=== PATIENT | female | born 1975 | race Caucasian/White ===

== ENCOUNTER 2018-11-25 16:12 | Emergency (ER) | payer OTHER ==
--- NOTE | 2018-11-25 17:33 | ER Document Report ---
ED Extremity Problem, Lower - General Chief Complaint: Leg Swelling Stated Complaint: LEG PAIN Time Seen by Provider: 11/25/18 17:16 Primary Care Provider: MAXIMUS VAIL MD [ACTIVE STAFF] - Follow up in 3-5 days TRAVEL OUTSIDE OF THE [place] IN LAST 30 DAYS: No - HPI Notes: 43-year-old female presents to the ED with complaints of right lower calf pain times 2 days, noticed some ecchymosis around lower calf area, denies any trauma, bleeding disorders, clotting disorders. Patient was concerned she might have a blood clot, no history of blood clot no recent immobilization, surgery or control. Patient asked a friend who said she may have a blood clot. Has not tried any warm compresses, ibuprofen or Tylenol. Last menstrual period was 2 weeks ago. 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 Denies fevers, chills, chest pain,palpitations, shortness of breath, dyspnea, nausea, vomiting, diarrhea, abdominal pain, hematuria,blurred vision, double vision, loss of vision, speech changes, LH, dizziness, syncope, headaches, weakness, bowel or bladder dysfunction, saddle anesthesia, numbness or tingling in bilateral upper or lower extremities equally, muscle paralysis, weakness in bilateral upper or lower extremities equally or rash - Related Data Allergies/Adverse Reactions: No Known Allergies Allergy (Unverified 11/25/18 16:14) Past Medical History - General Information source: Patient - Social History Smoking Status: Never Smoker Chew tobacco use (# tins/day): No Frequency of alcohol use: Social Drug Abuse: None Family History: Reviewed & Not Pertinent Patient has suicidal ideation: No Patient has homicidal ideation: No Renal/ Medical History: Denies: Hx Peritoneal Dialysis Review of Systems - Review of Systems Constitutional: No symptoms reported EENT: No symptoms reported Cardiovascular: No symptoms reported Respiratory: No symptoms reported Gastrointestinal: No symptoms reported Genitourinary: No symptoms reported Female Genitourinary: No symptoms reported Musculoskeletal: See HPI Skin: No symptoms reported Hematologic/Lymphatic: No symptoms reported Neurological/Psychological: No symptoms reported Physical Exam - Vital signs Vitals: Temp Pulse Resp BP Pulse Ox 98.1 F 70 20 148/93 H 97 11/25/18 16:21 11/25/18 16:21 11/25/18 16:21 11/25/18 16:21 11/25/18 16:21 - Notes Notes: PHYSICAL EXAMINATION: GENERAL: Well-appearing, well-nourished and in no acute distress. HEAD: Atraumatic, normocephalic. EYES: Pupils equal round and reactive to light, extraocular movements intact, conjunctiva are normal. ENT: Nares patent, oropharynx clear without exudates. Moist mucous membranes. NECK: Normal range of motion, supple without lymphadenopathy LUNGS: Breath sounds clear to auscultation bilaterally and equal. No wheezes rales or rhonchi. HEART: Regular rate and rhythm without murmurs ABDOMEN: Soft, nontender, nondistended abdomen. No guarding, no rebound. No masses appreciated. Female : deferred Musculoskeletal: Normal range of motion, no pitting or edema. No cyanosis. right calf tenderness with palpation to calf. negative maite's sign. anterior and posterior drawer test negative.Dtr + 2 in BLE. Full motor and sensory function.scant ecchymosis to lower calf. no abrasions noted. distal pulses + 2 bilaterally and equally. Bilateral lower extremity without deformity or asymmetry. No STS or edema. No overlying erythema, warmth, discoloration. No lesions or break in the skin integrity. No evidence of compartment syndrome, lymphadenopathy, gangrene. No palpable cords or evidence of thrombophlebitis. NEUROLOGICAL: Cranial nerves grossly intact. Normal speech, normal gait. Normal sensory, motor exams PSYCH: Normal mood, normal affect. SKIN: Warm, Dry, normal turgor, no rashes or lesions noted. 22-like and then on the other half of a flight Course - Re-evaluation Re-evalutation: 11/25/18 19:12 43-year-old female presents the ED for evaluation of right lower leg calf pain times 2 days. Patient's vitals are stable afebrile no distress. Patient is not having any shortness of breath or dyspnea, no lightheadedness or headaches. Patient was concerned that she might have a blood clot due to unilateral calf pain, patient does not have any risk factors such as taking control, periods of immobilization, surgery, chemotherapy, or history of blood clots. wet read of venous u/s was negative for blood clot. I have reevaluated this patient multiple times and no significant life threatening changes, no signs of [place], sepsis or peritonitis are noted. The patient and I have discussed the diagnosis and risks, and we agree with discharging home and close follow-up. We also discussed returning to the Emergency Department immediately if new or worsening symptoms occur with the understanding that symptoms and presentations can change. At this time will discharge with return precautions and follow-up recommendations. Verbal discharge instructions given a the bedside and opportunity for questions given. We have discussed the symptoms which are most concerning (e.g., fever, worsening calf pain, pain) that necessitate immediate return. Medication warnings reviewed. All questions and concerns answered by th is provider. Patient is in agreement with this plan and has verbalized understanding of return precautions and the need for primary care follow-up in the next 24-72 hours. Patient verbalized understanding of plan of care and agree with plan of care. - Vital Signs Vital signs: Temp Pulse Resp BP Pulse Ox 98.1 F 70 20 148/93 H 97 11/25/18 16:21 11/25/18 16:21 11/25/18 16:21 11/25/18 16:21 11/25/18 16:21 - Laboratory Result Diagrams: 11/25/18 18:30 11/25/18 18:30 Laboratory results interpreted by me: 11/25/18 11/25/18 18:30 18:30 WBC 11.7 H RDW 15.6 H Calcium 10.5 H AST 55 H Discharge - Discharge Clinical Impression: Superficial thrombophlebitis Condition: Stable Disposition: HOME, SELF-CARE Additional Instructions: your ultrasound negative for dvt's and blood work is normal Return immediately for any new or worsening symptoms. Follow up with primary care provider, call tomorrow to make followup appointment. Forms: Return to Work Referrals: MAXIMUS VAIL MD [ACTIVE STAFF] - Follow up in 3-5 days
[2018-11-25 18:45] LABS: ABSOLUTE BASOPHILS # (AUTO) 0.1 10^3/uL (0.0-0.2); ABSOLUTE EOSINOPHILS # (AUTO) 0.3 10^3/uL (0.0-0.6); ABSOLUTE LYMPHOCYTES (AUTO) 2.5 10^3/uL (0.5-4.7); ABSOLUTE MONOCYTES (AUTO) 0.7 10^3/uL (0.1-1.4); ABSOLUTE NEUT (AUTO) 8.2 10^3/uL (1.7-8.2); BASOPHILS % (AUTO) 0.8 % (0-2); EOSINOPHILS % (AUTO) 2.6 % (0-6); HEMATOCRIT 39.1 % (36.0-47.0); HEMOGLOBIN 13.3 g/dL (12.0-15.5); MEAN CORPUSCULAR HEMOGLOBIN 29.9 pg (27.0-33.4); MEAN CORPUSCULAR VOLUME 88 fl (80-97); MONOCYTES % (AUTO) 5.8 % (3-13); PLATELET COUNT 425 10^3/uL (150-450); RED BLOOD COUNT 4.44 10^6/uL (3.72-5.28); RED CELL DISTRIBUTION WIDTH 15.6 % (11.5-14.0); SEGMENTED NEUTROPHILS % (AUTO) 69.8 % (42-78); TOTAL CELLS COUNTED % (AUTO) 100 %; WHITE BLOOD COUNT 11.7 10^3/uL (4.0-10.5)
[2018-11-25 18:55] LABS: INTERNATIONAL RATION (INR) 0.92; PARTIAL THROMBOPLASTIN TIME 31.9 SEC (23.5-35.8); PROTHROMBIN TIME 12.8 SEC (11.4-15.4)
[2018-11-25 18:56] LABS: ALANINE AMINOTRANSFERASE 52 U/L (9-52); ALBUMIN 4.3 g/dL (3.5-5.0); ALKALINE PHOSPHATASE 95 U/L (38-126); ANION GAP 11 (5-19); ASPARTATE AMINO TRANSFERASE 55 U/L (14-36); BILIRUBIN,DIRECT 0.3 mg/dL (0.0-0.4); BILIRUBIN,TOTAL 0.4 mg/dL (0.2-1.3); BLOOD UREA NITROGEN 16 mg/dL (7-20); CALCIUM 10.5 mg/dL (8.4-10.2); CARBON DIOXIDE 26 mmol/L (22-30); CHLORIDE 101 mmol/L (98-107); GLUCOSE 94 mg/dL (75-110); POTASSIUM 4.3 mmol/L (3.6-5.0); SODIUM 137.6 mmol/L (137-145); TOTAL PROTEIN 7.9 g/dL (6.3-8.2)
[2018-11-25] MEDS ORDERED: ACETAMINOPHEN 325 MG TABLET PO ONE (19:56)
[2018-11-25 20:15] VITALS: BP 142/85
--- NOTE | 2018-11-26 08:21 | RADIOLOGY REPORT (SQ) ---
EXAM DESCRIPTION: VENOUS UNILATERAL LOWER COMPLETED DATE/TIME: 11/25/2018 7:33 pm REASON FOR STUDY: pain right leg, + ecchymosis COMPARISON: None. TECHNIQUE: Dynamic and static diallo scale and color images acquired of the right leg venous system. S elected spectral images acquired with additional compression and augmentation maneuvers. The contrala teral common femoral vein and saphenofemoral junction were also imaged. Images stored on PACS. LIMITATIONS: None. FINDINGS: COMMON FEMORAL: Normal phasicity, compression and augmentation. No visualized echogenic ma terial on diallo scale. No defects on color images. FEMORAL: Normal compression and augmentation. No visualized echogenic material on diallo scale. No defe cts on color images. POPLITEAL: Normal compression, augmentation. No visualized echogenic material on diallo scale. No defec ts on color images. CALF VESSELS: Normal compression, augmentation. No visualized echogenic material on diallo scale. No de fects on color images. GSV and SSV: Normal compression, augmentation. No visualized echogenic material on diallo scale. No def ects on color images. ANY DEEP VENOUS INSUFFICIENCY: Not evaluated. ANY EVIDENCE OF POPLITEAL CYST: No. OTHER: No other significant finding. CONTRALATERAL COMMON FEMORAL VEIN AND SAPHENOFEMORAL JUNCTION: Normal phasicity, compression and augmentation. No visualized echogenic material on diallo scale. No de fects on color images. IMPRESSION: Negative examination for deep venous thrombosis in the right lower extremity. TECHNICAL DOCUMENTATION: JOB ID: [id number] [employer]- All Rights Reserved Reading location - IP/workstation name: [email or web address]
== END 2018-11-25 20:13 | disposition home or self-care (01) ==
LOC: ER 16:12
DX: I80.01 Phlebitis and thrombophlebitis of superficial vessels of right lower extremity (principal); M79.89 Other specified soft tissue disorders; M79.604 Pain in right leg
CPT/HCPCS: 36415; 80053; 85025; 85610; 85730; 93971; 99284

== ENCOUNTER 2019-04-13 08:42 | Observation (INO) | payer OTHER ==
--- NOTE | 2019-04-13 09:33 | ER Document Report ---
ED General - General Chief Complaint: Dizziness Stated Complaint: DIZZINESS Time Seen by Provider: 04/13/19 09:33 TRAVEL OUTSIDE OF THE [place] IN LAST 30 DAYS: No - HPI Notes: 43-year-old female to the emergency department with complaints of dizziness that began yesterday and has gotten worse this morning. She admits to associated frontal and temporal headache as well as vomiting. She states that the d izziness started this morning when she got up and then the headache gradually came on. She also admits to some heart fluttering. She denies any chest pain, admits to a little bit of shortness of breath when she is vomiting. She states that she attempted to go to work today but she felt like she was spinning. She states that when she got to work she got worse. She states that she feels best when her head is down and her eyes are closed. She has not taken anything for her symptoms. She does have a history of vertigo that occurred when she was on a boat several years ago. She states that recently she has been flying back from the [facility] and got back on Thursday afternoon. She states that she has not had a fever. She admits to some chills. She denies any abdominal pain. She states that she has a history of superficial thrombophlebitis but never has had a DVT. She denies any leg swelling. She denies any leg pain. - Related Data Allergies/Adverse Reactions: No Known Allergies Allergy (Unverified 11/25/18 16:14) Past Medical History - General Information source: Patient, Friend - Social History Smoking Status: Never Smoker Chew tobacco use (# tins/day): No Frequency of alcohol use: Social Drug Abuse: None Family History: Reviewed & Not Pertinent Patient has suicidal ideation: No Patient has homicidal ideation: No Renal/ Medical History: Denies: Hx Peritoneal Dialysis Review of Systems - Review of Systems Constitutional: Chills. denies: Fever EENT: No symptoms reported Cardiovascular: Palpitations, Dizziness. denies: Chest pain, Dyspnea, Syncope, Lightheaded Respiratory: Cough, Short of breath Gastrointestinal: See HPI, Nausea, Vomiting. denies: Diarrhea Genitourinary: No symptoms reported Female Genitourinary: No symptoms reported Musculoskeletal: No symptoms reported Skin: No symptoms reported Hematologic/Lymphatic: No symptoms reported Neurological/Psychological: See HPI, Headaches. denies: Numbness, Tingling -: Yes All other systems reviewed and negative Physical Exam - Vital signs Vitals: Resp BP Pulse Ox 19 130/74 H 100 04/13/19 08:51 04/13/19 08:51 04/13/19 08:51 Interpretation: Normal - General General appearance: Alert In distress: Mild Notes: Patient is in mild distress. It is noted that her symptoms gets worse when she is laying down flat. - HEENT Head: Normocephalic, Atraumatic Eyes: Normal Pupils: PERRL Ears: Normal External canal: Normal Tympanic membrane: Normal Sinus: Normal Nasal: Normal Mouth/Lips: Normal Mucous membranes: Normal Pharynx: Normal Neck: Normal Notes: Fernando-Hallpike was performed and noted nystagmus to the right side when laying down flat with acute dizziness. - Respiratory Respiratory status: No respiratory distress Chest status: Nontender Breath sounds: Normal Chest palpation: Normal - Cardiovascular Rhythm: Regular Heart sounds: Normal auscultation Murmur: No - Abdominal Inspection: Normal Distension: No distension Bowel sounds: Normal Tenderness: Nontender Organomegaly: No organomegaly - Back Back: Normal, Nontender - Extremities General upper extremity: Normal inspection, Nontender, Normal color, Normal ROM, Normal temperature General lower extremity: Normal inspection, Nontender, Normal color, Normal ROM, Normal temperature, Normal weight bearing. No: Frederick's sign - Neurological Neuro grossly intact: Yes Cognition: Normal Orientation: AAOx4 Georgina Coma Scale Eye Opening: Spontaneous Georgina Coma Scale Verbal: Oriented Georgina Coma Scale Motor: Obeys Commands Georgina Coma Scale Total: 15 Speech: Normal Cranial nerves: Normal. 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 No: Pronator drift Sensory: Normal - Psychological Associated symptoms: Normal affect, Normal mood - Skin Skin Temperature: Warm Skin Moisture: Dry Skin Color: Normal Course - Re-evaluation Re-evalutation: 04/13/19 10:54 Patient to the emergency department with acute onset of dizziness with nausea vomiting headache and heart fluttering. On exam she seems to be acutely vertiginous. She has a positive [place]-Hallpike's. Plan to treat her vertiginous symptoms with Valium, meclizine, and Scolpamine patch. We will hydrate the patient and await lab work. 04/13/19 11:53 Rounded on patient. She has had some good results with the medicine given to her. She no longer has a headache. She states the dizziness is better but she still has a little bit of dizziness. We will let her rest for some time and then the plan will be to ambulate her and if she does well she can go home. 04/13/19 16:22 Patient has been doing well and stated that her dizziness is getting better. However shortly after rounding on her she began to complain of worsening dizziness, nausea, headache. Discussed patient with Dr. Schaefer, ER attending. Will obtain an MRI of the brain given her intractability of her symptoms. Rounded on patient update she agrees with plan. We will do this with more Valium, Zofran, morphine for pain. 04/13/19 Rounded on patient after negative MRIs. She remains dizzy and unable to walk around the department without getting extremely dizzy. Discussed further with Dr. Schaefer and we both agree that since she is so dizzy that she cannot ambulate around the department that she will require admission. Will page the hospitalist service. Spoke with nurse adi Casillas the hospitalist team. We discussed patient's imaging studies, medicine given to her, and her intractable dizziness. He states that patient can be admitted under Dr. Hayden service and put to a [facility] bed. Impression: Intractable dizziness. Patient has a negative head CT and negative MRIs but despite several attempts at indication she has not improved. She will be admitted to the hospitalist service for further monitoring and management. She agrees with the plan. - Vital Signs Vital signs: Temp Pulse Resp BP Pulse Ox 97.6 F 59 L 11 L 158/98 H 97 04/13/19 09:06 04/13/19 13:06 04/13/19 16:00 04/13/19 13:31 04/13/19 16:00 - Laboratory Result Diagrams: 04/13/19 09:01 04/13/19 09:01 Laboratory results interpreted by me: 04/13/19 04/13/19 09:01 09:01 RDW 15.4 H Seg Neutrophils % 80.2 H Lymphocytes % 12.8 L Glucose 117 H AST 51 H - Diagnostic Test Radiology reviewed: Image reviewed, Reports reviewed Radiology results interpreted by me: 04/13/19 19:[address] 04/13/19 13:55 IMPRESSION: No acute intracranial pathology. No noncontrast CT findings to ex plain dizziness. EVIDENCE OF ACUTE STROKE: NO. Brain MRI with MRA 04/13/19 15:58 IMPRESSION: NORMAL MRA OF THE [place]. Head MRI 04/13/19 15:58 IMPRESSION: NORMAL MRI OF THE BRAIN WITHOUT INTRAVENOUS GADOLINIUM CONTRAST. EVIDENCE OF ACUTE STROKE: NO. - EKG Interpretation by Id EKG shows normal: Sinus rhythm Rate: Normal Rhythm: NSR When compared to previous EKG there are: Previous EKG unavailable Additional EKG results interpreted by me: 04/13/19 NO STEMI, abnormal T waves in Lead III. No prior for comparison. Discharge - Discharge Clinical Impression: Dizziness Disposition: ADMITTED INPATIENT Admitting Provider: Catracho (Hospitalist) Unit Admitted: Medical Floor
[2019-04-13 10:16] LABS: CREATINE KINASE MB 0.66 ng/mL (<4.55)
[2019-04-13 10:17] LABS: TROPONIN I < 0.012 ng/mL
[2019-04-13] MEDS ORDERED: DIAZEPAM INJ 10 MG/2 ML DISP.SYRIN IV ONE ×3 (10:34→15:59)
[2019-04-13] MEDS ORDERED: ONDANSETRON HCL INJ/PF 4 MG/2 ML SDV IV ONE ×2 (10:35→15:57)
[2019-04-13] MEDS ORDERED: SCOPOLAMINE HYDROBROMIDE 1.5 MG PATCH.TD72 TD ONE ×2 (10:44→20:30)
[2019-04-13] MEDS ORDERED: MECLIZINE HCL 12.5 MG TABLET PO ONE (10:44)
[2019-04-13 11:04] LABS: ABSOLUTE BASOPHILS # (AUTO) 0.1 10^3/uL (0.0-0.2); ABSOLUTE EOSINOPHILS # (AUTO) 0.2 10^3/uL (0.0-0.6); ABSOLUTE LYMPHOCYTES (AUTO) 1.3 10^3/uL (0.5-4.7); ABSOLUTE MONOCYTES (AUTO) 0.4 10^3/uL (0.1-1.4); BASOPHILS % (AUTO) 0.6 % (0-2); EOSINOPHILS % (AUTO) 2.1 % (0-6); HEMATOCRIT 39.2 % (36.0-47.0); LYMPHOCYTES % (AUTO) 12.8 % (13-45); MEAN CORPUSCULAR HEMOGLOBIN 29.4 pg (27.0-33.4); MEAN CORPUSCULAR HGB CONC 33.3 g/dL (32.0-36.0); MEAN CORPUSCULAR VOLUME 88 fl (80-97); MONOCYTES % (AUTO) 4.3 % (3-13); PLATELET COUNT 369 10^3/uL (150-450); RED BLOOD COUNT 4.44 10^6/uL (3.72-5.28); RED CELL DISTRIBUTION WIDTH 15.4 % (11.5-14.0); SEGMENTED NEUTROPHILS % (AUTO) 80.2 % (42-78); TOTAL CELLS COUNTED % (AUTO) 100 %; WHITE BLOOD COUNT 9.9 10^3/uL (4.0-10.5)
[2019-04-13 11:13] LABS: ALBUMIN 4.2 g/dL (3.5-5.0); ALKALINE PHOSPHATASE 95 U/L (38-126); ANION GAP 8 (5-19); ASPARTATE AMINO TRANSFERASE 51 U/L (14-36); BILIRUBIN,DIRECT 0.4 mg/dL (0.0-0.4); BILIRUBIN,TOTAL 0.6 mg/dL (0.2-1.3); BLOOD UREA NITROGEN 13 mg/dL (7-20); CALCIUM 9.5 mg/dL (8.4-10.2); CARBON DIOXIDE 28 mmol/L (22-30); CHLORIDE 103 mmol/L (98-107); GLUCOSE 117 mg/dL (75-110); POTASSIUM 4.8 mmol/L (3.6-5.0)
[2019-04-13] MEDS ORDERED: NORMAL SALINE 1000 ML 1,000 ML IV ONE (11:53)
[2019-04-13 12:08] LABS: APPEARANCE,URINE CLEAR; BILIRUBIN,URINE NEGATIVE (NEGATIVE); COLOR,URINE YELLOW; GLUCOSE, URINE NEGATIVE (NEGATIVE); KETONES,URINE NEGATIVE (NEGATIVE); LEUKOCYTE ESTERASE,URINE NEGATIVE (NEGATIVE); NITRITE,URINE NEGATIVE (NEGATIVE); PROTEIN,URINE NEGATIVE (NEGATIVE); URINE SPECIFIC GRAVITY 1.014; UROBILINOGEN,URINE NEGATIVE mg/dL (<2.0)
--- NOTE | 2019-04-13 12:18 | EKG REPORT ---
SEVERITY:- ABNORMAL ECG - SINUS RHYTHM PROBABLE INFERIOR INFARCT, OLD, CLINICAL CORRELATION NEEDED. : Confirmed by: Jose Conti MD 13-Apr-2019 12:17:02
[2019-04-13 12:28] LABS: URINE AMPHETAMINES SCREEN NEGATIVE; URINE BARBITURATES SCREEN NEGATIVE; URINE BENZODIAZEPINES SCREEN NEGATIVE; URINE COCAINE SCREEN NEGATIVE; URINE MARIJUANA (THC) SCREEN NEGATIVE; URINE METHADONE SCREEN NEGATIVE; URINE PHENCYCLIDINE SCREEN NEGATIVE
[2019-04-13] MEDS ORDERED: METHYLPREDNISOLONE INJ 125 MG/2 ML SDV IV ONE ×2 (13:55→20:30)
--- NOTE | 2019-04-13 14:21 | RADIOLOGY REPORT (SQ) ---
EXAM DESCRIPTION: CT HEAD WITHOUT COMPLETED DATE/TIME: 04/13/2019 2:08 pm REASON FOR STUDY: dizziness COMPARISON: None. TECHNIQUE: Axial images acquired through the brain without intravenous contrast. Images reviewed wi th bone, brain and subdural windows. Additional sagittal and coronal reconstructions were generated. Images stored on PACS. All CT scanners at this facility use dose modulation, iterative reconstruction, and/or weight based d osing when appropriate to reduce radiation dose to as low as reasonably achievable (ALARA). [facility]: Dose Right [facility]: CareDose [facility]: Dose Right [facility]: Teradose 4D [facility]: Definigen RADIATION DOSE: CT Rad equipment meets quality standard of care and radiation dose reduction techniq ues were employed. CTDIvol: 53.2 mGy. DLP: 1017 mGy-cm. mGy. LIMITATIONS: None. FINDINGS: VENTRICLES: Normal size and contour. CEREBRUM: No masses. No hemorrhage. No midline shift. No evidence for acute infarction. Normal gra y/white matter differentiation. No areas of low density in the white matter. CEREBELLUM: No masses. No hemorrhage. No alteration of density. No evidence for acute infarction. EXTRAAXIAL SPACES: No fluid collections. No masses. ORBITS AND GLOBE: No intra- or extraconal masses. Normal contour of globe without masses. CALVARIUM: No fracture. PARANASAL SINUSES: No fluid or mucosal thickening. SOFT TISSUES: No mass or hematoma. OTHER: No other significant finding. IMPRESSION: No acute intracranial pathology. No noncontrast CT findings to explain dizziness. EVIDENCE OF ACUTE STROKE: NO. COMMENT: Quality ID # [id number]: Final reports with documentation of one or more dose reduction techniques (e.g., Automated exposure control, adjustment of the mA and/or kV according to patient size, use of iterative reconstruction technique) TECHNICAL DOCUMENTATION: JOB ID: [id number] [employer]- All Rights Reserved Reading location - IP/workstation name: [email or web address]
[2019-04-13] MEDS ORDERED: KETOROLAC TROMETHAMINE INJ/PF 30 MG/1 ML SDV IV ONE (15:51)
[2019-04-13] MEDS ORDERED: MECLIZINE HCL 25 MG TABLET PO ONE (15:51)
[2019-04-13] MEDS ORDERED: MORPHINE SULFATE 10 MG/ML INJ IV ONE (15:53)
--- NOTE | 2019-04-13 17:31 | RADIOLOGY REPORT (SQ) ---
EXAM DESCRIPTION: MRI HEAD WITHOUT COMPLETED DATE/TIME: 04/13/2019 5:12 pm REASON FOR STUDY: dizziness COMPARISON: None. TECHNIQUE: Multiplanar imaging includes non-contrasted T1, T2, FLAIR, and diffusion with ADC map seq uences. Images stored on PACS. LIMITATIONS: None. FINDINGS: ANATOMY: No anomalies. Normal vascular flow voids. Pituitary fossa normal. CSF SPACES: Normal in size and contour. No hemorrhage. CEREBRUM: Sulci and gyri normal in size and contour. Normal white matter signal on FLAIR imaging. No evidence of hemorrhage, mass, or extraaxial fluid collection. POSTERIOR FOSSA: No signal alteration. No hemorrhage. No edema, masses or mass effect. Internal franci tory canals, cerebello-pontine angles, mastoids normal. DIFFUSION IMAGING: Negative for acute or sub-acute infarction. ORBITS: No masses. Globes normal. PARANASAL SINUSES: No fluid levels. Mucosa normal. OTHER: No other significant finding. IMPRESSION: NORMAL MRI OF THE BRAIN WITHOUT INTRAVENOUS GADOLINIUM CONTRAST. EVIDENCE OF ACUTE STROKE: NO. TECHNICAL DOCUMENTATION: JOB ID: [id number] [employer]- All Rights Reserved Reading location - IP/workstation name: [email or web address]
--- NOTE | 2019-04-13 17:34 | RADIOLOGY REPORT (SQ) ---
EXAM DESCRIPTION: MRA HEAD WITHOUT COMPLETED DATE/TIME: 04/13/2019 5:12 pm REASON FOR STUDY: dizziness COMPARISON: None. TECHNIQUE: Axial 3-D [id number] acquisition imaging performed through the brain in the area of t he [place]. Images reformatted using 3-D MIPS. LIMITATIONS: None. FINDINGS: SOURCE IMAGES: No unexpected findings on source images. No large masses. 3-D MIP: No aneurysm. No occlusions. No significant stenosis. OTHER: No other significant finding. IMPRESSION: NORMAL MRA OF THE [place]. TECHNICAL DOCUMENTATION: JOB ID: [id number] [employer]- All Rights Reserved Reading location - IP/workstation name: [email or web address]
[2019-04-13] MEDS ORDERED: CHLORPROMAZINE HCL INJ 25 MG/1 ML AMPULE IV PRN (19:52)
[2019-04-13] MEDS ORDERED: ACETAMINOPHEN 325 MG TABLET PO PRN (19:52)
[2019-04-13] MEDS ORDERED: ACETAMINOPHEN 650 MG SUPP.RECT PR PRN (19:52)
[2019-04-13 20:44] LABS: FREE T3 3.95 pg/mL (2.77-5.27); FREE T4 (FREE THYROXINE) 0.84 ng/dL (0.78-2.19)
[2019-04-13] MEDS: RINGERS SOLUTION,LACTATED 1,000 ML IV PRN (21:11)
[2019-04-13] MEDS: MECLIZINE HCL 25 MG TABLET PO PRN (22:51)
[2019-04-13] MEDS: NALBUPHINE HCL INJ 10 MG/1 ML AMPULE IV PRN (22:51)
[2019-04-13] MEDS: FAMOTIDINE INJ/PF 20 MG/2 ML SDV IV SCH (22:52)
[2019-04-13] MEDS: HEPARIN SOD (PORCINE) 5,000 UNIT/ML 1 ML VIAL SUBCUT SCH (22:53)
[2019-04-13] MEDS: DIAZEPAM INJ 10 MG/2 ML DISP.SYRIN IV SCH (23:02)
--- NOTE | 2019-04-14 01:03 | PDOC H&P ---
History of Present Illness Admission Date/PCP: 04/13/2019 19:11 No local PCP Patient complains of: Dizziness History of Present Illness: JOSE GANT is a 43 year old female who presented to the emergency room with a 2 day history of dizziness. Patient complains of gradually worsening d izziness/vertigo which began Thursday shortly after landing at the airport upon her return from a vacation in [place]. The dizziness and vertigo were present intermittently on Thursday and also on Thursday but at 4:30 this morning she was awakened by the dizziness, nausea and headache so severe that she was unable to stand and had to crawl to the bathroom in order to vomit. Her symptoms continued to worsen throughout the day causing her to present to the emergency room. She admits of an associated temporal-frontal headache, nausea with vomiting and heart palpitations. Her sensation of dizziness his become severe with a feeling that she is spinning and is worsened by movements of her head or eyes and relieved by putting her head in a downward gaze position with her eyes closed. She admits to similar prior episode of vertigo related to "seasickness" several years ago. She denies other associated or accompanying signs and symptoms. She has not identified any additional aggravating or ameliorating factors for her dizziness. In the emergency room she had an extensive work-up including an MRI of the head and numerous laboratory evaluations which were essentially unremarkable. Patient was somewhat responsive to initial treatment with Valium, scopolamine and meclizine but her symptoms reoccurred and she remained symptomatic and thus was admitted to the hospital for further evaluation and treatment. Past Medical History Cardiac Medical History: Denies: Coronary Artery Disease, Hypertension Pulmonary Medical History: Denies: Asthma, Chronic Obstructive Pulmonary Disease (COPD) EENT Medical History: Denies: Cataracts, Nose - Allergic rhinitis Neurological Medical History: Denies: Hemorrhagic CVA, Ischemic CVA, Multiple Sclerosis, Seizures Endocrine Medical History: Reports: Obesity Denies: Diabetes Mellitus Type 1, Diabetes Mellitus Type 2, Hyperthyroidism, Hypothyroidism Renal/ Medical History: Denies: Chronic Kidney Disease, Nephrolithiasis Malignancy Medical History: Reports: None GI Medical History: Denies: Cirrhosis, Crohn's Disease, Hepatitis, Ulcerative Colitis Musculoskeltal Medical History: Denies: Arthritis, Fibromyalgia, Gout Skin Medical History: Denies: Eczema, Psoriasis Psychiatric Medical History: Denies: Alcohol Dependency, Substance Abuse, Tobacco Dependency Traumatic Medical History: Reports: None Hematology: Denies: Anemia, Bleeding Tendencies Infectious Medical History: Reports: None Past Surgical History Past Surgical History: Reports: None Social History Information Source: Patient Lives with: Spouse/Significant other Smoking Status: Never Smoker Frequency of Alcohol Use: Social Hx Recreational Drug Use: No Drugs: None Hx Prescription Drug Abuse: No - Advance Directive Resuscitation Status: Full Code Surrogate healthcare decision maker:: Domingo Gant Family History Family History: CAD, DM, Hypertension, Malignancy Parental Family History Reviewed: Yes Children Family History Reviewed: No Sibling(s) Family History Reviewed.: Yes Medication/Allergy Home Medications: No Home Medications 04/13/19 Allergies/Adverse Reactions: No Known Allergies Allergy (Unverified 11/25/18 16:14) Review of Systems Constitutional: PRESENT: as per HPI, headache(s). ABSENT: chills, fever(s) Eyes: ABSENT: visual disturbances, other - Eye pain Ears: ABSENT: hearing changes, other - Ear pain Nose, Mouth, and Throat: ABSENT: mouth pain, sore throat Cardiovascular: ABSENT: chest pain, dyspnea on exertion, palpitations Respiratory: ABSENT: cough, dyspnea Gastrointestinal: PRESENT: as per HPI, nausea, vomiting. ABSENT: abdominal pain, constipation, diarrhea Genitourinary: ABSENT: dysuria, hematuria Musculoskeletal: ABSENT: back pain, joint swelling, muscle weakness Integumentary: ABSENT: diaphoresis, pruritus, rash Neurological: PRESENT: dizziness, vertigo. ABSENT: confusion, convulsions, focal weakness, memory loss, syncope Psychiatric: ABSENT: anxiety, depression Endocrine: ABSENT: cold intolerance, heat intolerance Hematologic/Lymphatic: ABSENT: easy bleeding, easy bruising Allergic/Immunologic: ABSENT: seasonal rhinorrhea Physical Exam Vital Signs: Temp Pulse Resp BP Pulse Ox 97.6 F 59 L 11 L 158/98 H 97 04/13/19 09:06 04/13/19 13:06 04/13/19 16:00 04/13/19 13:31 04/13/19 16:00 Intake & Output 04/11/19 04/12/19 04/13/19 23:59 23:59 23:59 Intake Total 1000 Balance 1000 Weight 113.398 kg General appearance: PRESENT: cooperative, mild distress - Secondary to vertigo, morbidly obese Head exam: PRESENT: atraumatic, normocephalic Eye exam: PRESENT: conjunctiva pink, nystagmus - Fast component to the right. ABSENT: conjunctival injection, scleral icterus Ear exam: PRESENT: normal external ear exam. ABSENT: bleeding, drainage Mouth exam: PRESENT: dry mucosa, neck supple Neck exam: ABSENT: JVD, thyromegaly, tracheal deviation Respiratory exam: PRESENT: clear to auscultation aquiles, symmetrical, unlabored Cardiovascular exam: PRESENT: RRR. ABSENT: clicks, gallop, rubs Pulses: PRESENT: normal radial pulses, normal dorsalis pedis pul Vascular exam: PRESENT: normal capillary refill. ABSENT: pallor GI/Abdominal exam: PRESENT: normal bowel sounds, soft. ABSENT: tenderness Rectal exam: PRESENT: deferred Extremities exam: ABSENT: joint swelling, pedal edema Musculoskeletal exam: PRESENT: full ROM, normal inspection. ABSENT: tenderness Neurological exam: PRESENT: alert, oriented to person, oriented to place, oriented to time, oriented to situation. ABSENT: CN II-XII grossly intact - Nystagmus as noted above Psychiatric exam: PRESENT: appropriate affect, normal mood Skin exam: PRESENT: dry, intact, warm. ABSENT: jaundice, rash, urticaria Results Laboratory Results: 04/13/19 09:01 04/13/19 09:01 04/13/19 04/13/19 04/13/19 09:01 09:01 09:01 WBC RBC Hgb Hct MCV MCH MCHC RDW Plt Count Seg Neutrophils % Lymphocytes % Monocytes % Eosinophils % Basophils % Absolute Neutrophils Absolute Lymphocytes Absolute Monocytes Absolute Eosinophils Absolute Basophils Sodium Cancelled 139.3 Potassium Cancelled 4.8 Chloride Cancelled 103 Carbon Dioxide Cancelled 28 Anion Gap Cancelled 8 BUN Cancelled 13 Creatinine Cancelled 0.75 Est GFR ( Amer) Cancelled > 60 Est GFR (Non-Af Amer) Cancelled > 60 Glucose Cancelled 117 H Calcium Cancelled 9.5 Magnesium 1.9 Total Bilirubin Cancelled 0.6 AST Cancelled 51 H Alkaline Phosphatase Cancelled 95 Total Protein Cancelled 8.0 Albumin Cancelled 4.2 TSH 3.48 Urine Color Urine Appearance Urine pH Ur Specific [place] Urine Protein Urine Glucose (UA) Urine Ketones Urine Blood Urine Nitrite Ur Leukocyte Esterase Urine WBC (Auto) Urine RBC (Auto) 04/13/19 04/13/19 09:01 11:55 WBC 9.9 RBC 4.44 Hgb 13.0 Hct 39.2 MCV 88 MCH 29.4 MCHC 33.3 RDW 15.4 H Plt Count 369 Seg Neutrophils % 80.2 H Lymphocytes % 12.8 L Monocytes % 4.3 Eosinophils % 2.1 Basophils % 0.6 Absolute Neutrophils 8.0 Absolute Lymphocytes 1.3 Absolute Monocytes 0.4 Absolute Eosinophils 0.2 Absolute Basophils 0.1 Sodium Potassium Chloride Carbon Dioxide Anion Gap BUN Creatinine Est GFR ( Amer) Est GFR (Non-Af Amer) Glucose Calcium Magnesium Total Bilirubin AST Alkaline Phosphatase Total Protein Albumin TSH Urine Color YELLOW Urine Appearance CLEAR Urine pH 7.0 Ur Specific [place] 1.014 Urine Protein NEGATIVE Urine Glucose (UA) NEGATIVE Urine Ketones NEGATIVE Urine Blood NEGATIVE Urine Nitrite NEGATIVE Ur Leukocyte Esterase NEGATIVE Urine WBC (Auto) 1 Urine RBC (Auto) 1 04/13/19 04/13/19 09:01 09:01 Creatine Kinase 75 CK-MB (CK-2) 0.66 Troponin I < 0.012 Impressions: Head CT 04/13/19 13:55 IMPRESSION: No acute intracranial pathology. No noncontrast CT findings to explain dizziness. EVIDENCE OF ACUTE STROKE: NO. Brain MRI with MRA 04/13/19 15:58 IMPRESSION: NORMAL MRA OF THE [place]. Head MRI 04/13/19 15:58 IMPRESSION: NORMAL MRI OF THE BRAIN WITHOUT INTRAVENOUS GADOLINIUM CONTRAST. EVIDENCE OF ACUTE STROKE: NO. Assessment and Plan - Diagnosis (1) Acute labyrinthitis Qualifiers: Laterality: right Qualified Code(s): H83.01 - Labyrinthitis, right ear Is this a current diagnosis for this admission?: Yes Plan: Patient will receive supportive and symptomatic care. She will receive IV fluids and will be treated with a scopolamine transdermal patch, meclizine, sanders epam and IV Solu-Medrol. She will be reevaluated on a regular basis for response to treatment. A daily CBC will be obtained as part of her ongoing evaluation. (2) Nausea and vomiting Qualifiers: Vomiting type: unspecified Vomiting Intractability: intractable Qualified Code(s): R11.2 - Nausea with vomiting, unspecified Is this a current diagnosis for this admission?: Yes Plan: Patient will be treated with IV fluids and will receive Thorazine 25 mg IV every 8 hours for her intractable vomiting. She will be closely observed for response to care. A daily metabolic profile and magnesium level will be obtained to monitor her electrolyte balance. (3) Headache Qualifiers: Headache type: unspecified Headache chronicity pattern: acute headache Intractability: intractable Qualified Code(s): R51 - Headache Is this a current diagnosis for this admission?: Yes Plan: Patient will receive IV fluids and treatment as noted above for her acute labyrinthitis. She will use Nubain 10 mg IV every 3 hours on a as needed basis for her headache pain. (4) Intermittent palpitations Is this a current diagnosis for this admission?: Yes Plan: Patient will be observed on telemetry for any significant arrhythmia. Daily laboratories will be obtained as noted above. (5) Morbid obesity with BMI of 40.0-44.9, adult Is this a current diagnosis for this admission?: Yes Plan: A nutrition consultation will be obtained to advise the patient on a healthy diet and lifestyle changes, aimed at weight loss and improvement of her overall well-being. - Time Time Spent with patient: 25-34 minutes Medications reviewed and adjusted accordingly: Yes Anticipated discharge: Home - Inpatient Certification Based on my medical assessment, after consideration of the patient's comorbidities, presenting symptoms, or acuity I expect that the services needed warrant INPATIENT care.: Yes I certify that my determination is in accordance with my understanding of Medicare's requirements for reasonable and necessary INPATIENT services [42 CFR 412.3e].: Yes Medical Necessity: Need Close Monitoring Due to Risk of Patient Decompensation, Need For IV Fluids, Need For Continuous Telemetry Monitoring, Need for Neurological Checks, Need for Pain Control, Risk of Complication if Not Cared For in Hospital
--- NOTE | 2019-04-14 01:06 | ADVANCED CARE ---
- Diagnosis (1) Acute labyrinthitis Diagnosis Current: Yes (2) Nausea and vomiting Diagnosis Current: Yes (3) Headache Diagnosis Current: Yes (4) Intermittent palpitations Diagnosis Current: Yes (5) Morbid obesity with BMI of 40.0-44.9, adult Diagnosis Current: Yes Attendance: The patient and myself. Resuscitation Status: Full Code Discussion: After brief conversation with patient has determined that she wishes to remain full code for her resuscitation status throughout this admission. Additionally she has named Domingo Alston as her designated surrogate medical decision maker. Care Planning Goals: 1. Patient will be full CODE STATUS throughout this admission. 2. Domingo Alston is the patient's designated surrogate medical decision- maker. Document(s) Completed: Following entries will be made to the patient's permanent medical record, current medical record and current orders via EMR entry: 1. Patient will be full CODE STATUS throughout this admission. 2. Domingo Alston is the patient's designated surrogate medical decision- maker. Time Spent: 3 minutes
[2019-04-14] MEDS: NALBUPHINE HCL INJ 10 MG/1 ML AMPULE IV PRN (06:28)
[2019-04-14] MEDS: RINGERS SOLUTION,LACTATED 1,000 ML IV PRN (06:32)
[2019-04-14] MEDS: DIAZEPAM INJ 10 MG/2 ML DISP.SYRIN IV SCH (06:33)
[2019-04-14] MEDS: HEPARIN SOD (PORCINE) 5,000 UNIT/ML 1 ML VIAL SUBCUT SCH ×3 (06:35→22:50)
[2019-04-14 06:51] LABS: HEMATOCRIT 37.8 % (36.0-47.0); HEMOGLOBIN 12.5 g/dL (12.0-15.5); MEAN CORPUSCULAR HEMOGLOBIN 29.3 pg (27.0-33.4); MEAN CORPUSCULAR HGB CONC 33.1 g/dL (32.0-36.0); MEAN CORPUSCULAR VOLUME 89 fl (80-97); PLATELET COUNT 372 10^3/uL (150-450); RED BLOOD COUNT 4.27 10^6/uL (3.72-5.28); RED CELL DISTRIBUTION WIDTH 15.5 % (11.5-14.0); WHITE BLOOD COUNT 15.4 10^3/uL (4.0-10.5)
[2019-04-14 07:13] LABS: ANION GAP 11 (5-19); BLOOD UREA NITROGEN 14 mg/dL (7-20); CALCIUM 9.1 mg/dL (8.4-10.2); CARBON DIOXIDE 21 mmol/L (22-30); CHLORIDE 105 mmol/L (98-107); CHOLESTEROL 225.73 mg/dL (0-200); GLUCOSE 213 mg/dL (75-110); POTASSIUM 4.2 mmol/L (3.6-5.0); TRIGLYCERIDES 208 mg/dL (<150)
[2019-04-14 07:24] LABS: DIRECT LDL 147 mg/dL (<100)
[2019-04-14 07:26] LABS: VLDL CHOLESTEROL 41.6 mg/dL (10-31)
[2019-04-14] MEDS: FAMOTIDINE INJ/PF 20 MG/2 ML SDV IV SCH ×2 (09:36→22:50)
[2019-04-14] MEDS: MECLIZINE HCL 25 MG TABLET PO PRN ×2 (09:37→18:11)
--- NOTE | 2019-04-14 10:34 | PDOC PROGRESS REPORT ---
Subjective Progress Note for:: 04/14/19 Subjective:: 43 year old female who presented to the emergency room with a 2 day history of dizziness. Patient complains of gradually worsening dizziness/vertigo which began Thursday shortly after landing at the airport upon her return from a vacation in [place]. The dizziness and vertigo were present intermittently on Thursday and also on Thursday but at 4:30 this morning she was awakened by the dizziness, nausea and headache so severe that she was unable to stand and had to crawl to the bathroom in order to vomit. Her symptoms continued to worsen throughout the day causing her to present to the emergency room. She admits of an associated temporal-frontal headache, nausea with vomiting and heart palpitations. Her sensation of dizziness his become severe with a feeling that she is spinning and is worsened by movements of her head or eyes and relieved by putting her head in a downward gaze position with her eyes closed. She admits to similar prior episode of vertigo related to "seasickness" several years ago. She denies other associated or accompanying signs and symptoms. She has not identified any additional aggravating or ameliorating factors for her dizziness. In the emergency room she had an extensive work-up including an MRI of the head and numerous laboratory evaluations which were essentially unremarkable. Patient was somewhat responsive to initial treatment with Valium, scopolamine and meclizine but her symptoms reoccurred and she remained symptomatic and thus was admitted to the hospital for further evaluation and treatment. [id number]-old female admitted with 2 days history of dizziness. Extensive work-up was done MRI of the head was negative CT head was negative MRI of the brain was negative she still complaining of dizziness on standing and feeling lightheaded she felt like she may able to fall every time she gets up. She does not want to go home. Reason For Visit: ACUTE LABYRINTHITIS WITH INTRACTABLE HEADACHE, Physical Exam Vital Signs: Temp Pulse Resp BP Pulse Ox 97.4 F 63 14 112/53 L 94 04/14/19 07:00 04/14/19 07:00 04/14/19 07:00 04/14/19 07:00 04/14/19 07:00 Intake & Output 04/13/19 04/14/19 04/15/19 06:59 06:59 06:59 Intake Total 3030 Output Total 0 Balance 3030 Weight 114.7 kg General appearance: PRESENT: no acute distress Head exam: PRESENT: atraumatic Eye exam: PRESENT: PERRLA Mouth exam: PRESENT: moist, tongue midline Neck exam: ABSENT: carotid bruit, JVD, lymphadenopathy, thyromegaly Respiratory exam: PRESENT: clear to auscultation aquiles. ABSENT: rales, rhonchi, wheezes Cardiovascular exam: PRESENT: RRR. ABSENT: diastolic murmur, rubs, systolic murmur GI/Abdominal exam: PRESENT: normal bowel sounds, soft. ABSENT: distended, guarding, mass, organolmegaly, rebound, tenderness Rectal exam: PRESENT: deferred Extremities exam: PRESENT: full ROM. ABSENT: calf tenderness, clubbing, pedal edema Neurological exam: PRESENT: alert, awake, oriented to person, oriented to place, oriented to time, oriented to situation, CN II-XII grossly intact. ABSENT: motor sensory deficit Psychiatric exam: PRESENT: appropriate affect, normal mood. ABSENT: homicidal ideation, suicidal ideation Results Laboratory Results: 04/14/19 06:19 04/14/19 06:19 04/13/19 04/13/19 04/13/19 09:01 09:01 09:01 WBC 9.9 RBC 4.44 Hgb 13.0 Hct 39.2 MCV 88 MCH 29.4 MCHC 33.3 RDW 15.4 H Plt Count 369 Seg Neutrophils % 80.2 H Lymphocytes % 12.8 L Monocytes % 4.3 Eosinophils % 2.1 Basophils % 0.6 Absolute Neutrophils 8.0 Absolute Lymphocytes 1.3 Absolute Monocytes 0.4 Absolute Eosinophils 0.2 Absolute Basophils 0.1 Sodium 139.3 Potassium 4.8 Chloride 103 Carbon Dioxide 28 Anion Gap 8 BUN 13 Creatinine 0.75 Est GFR ( Amer) > 60 Est GFR (Non-Af Amer) > 60 Glucose 117 H Calcium 9.5 Magnesium Total Bilirubin 0.6 AST 51 H Alkaline Phosphatase 95 Total Protein 8.0 Albumin 4.2 Triglycerides Cholesterol LDL Cholesterol Direct VLDL Cholesterol HDL Cholesterol TSH 3.48 Free T4 Free T3 pg/mL Urine Color Urine Appearance Urine pH Ur Specific [place] Urine Protein Urine Glucose (UA) Urine Ketones Urine Blood Urine Nitrite Ur Leukocyte Esterase Urine WBC (Auto) Urine RBC (Auto) 04/13/19 04/13/19 04/14/19 09:01 11:55 06:19 WBC 15.4 H RBC 4.27 Hgb 12.5 Hct 37.8 MCV 89 MCH 29.3 MCHC 33.1 RDW 15.5 H Plt Count 372 Seg Neutrophils % Lymphocytes % Monocytes % Eosinophils % Basophils % Absolute Neutrophils Absolute Lymphocytes Absolute Monocytes Absolute Eosinophils Absolute Basophils Sodium Potassium Chloride Carbon Dioxide Anion Gap BUN Creatinine Est GFR ( Amer) Est GFR (Non-Af Amer) Glucose Calcium Magnesium Total Bilirubin AST Alkaline Phosphatase Total Protein Albumin Triglycerides Cholesterol LDL Cholesterol Direct VLDL Cholesterol HDL Cholesterol TSH Cancelled Free T4 0.84 Free T3 pg/mL 3.95 Urine Color YELLOW Urine Appearance CLEAR Urine pH 7.0 Ur Specific [place] 1.014 Urine Protein NEGATIVE Urine Glucose (UA) NEGATIVE Urine Ketones NEGATIVE Urine Blood NEGATIVE Urine Nitrite NEGATIVE Ur Leukocyte Esterase NEGATIVE Urine WBC (Auto) 1 Urine RBC (Auto) 1 04/14/19 06:19 WBC RBC Hgb Hct MCV MCH MCHC RDW Plt Count Seg Neutrophils % Lymphocytes % Monocytes % Eosinophils % Basophils % Absolute Neutrophils Absolute Lymphocytes Absolute Monocytes Absolute Eosinophils Absolute Basophils Sodium 137.3 Potassium 4.2 Chloride 105 Carbon Dioxide 21 L Anion Gap 11 BUN 14 Creatinine 0.86 Est GFR ( Amer) > 60 Est GFR (Non-Af Amer) > 60 Glucose 213 H Calcium 9.1 Magnesium 1.9 Total Bilirubin AST Alkaline Phosphatase Total Protein Albumin Triglycerides 208 H Cholesterol 225.73 H LDL Cholesterol Direct 147 H VLDL Cholesterol 41.6 H HDL Cholesterol 52 TSH Free T4 Free T3 pg/mL Urine Color Urine Appearance Urine pH Ur Specific [place] Urine Protein Urine Glucose (UA) Urine Ketones Urine Blood Urine Nitrite Ur Leukocyte Esterase Urine WBC (Auto) Urine RBC (Auto) 04/13/19 04/13/19 09:01 09:01 Creatine Kinase 75 CK-MB (CK-2) 0.66 Troponin I < 0.012 Impressions: Head CT 04/13/19 13:55 IMPRESSION: No acute intracranial pathology. No noncontrast CT findings to explain dizziness. EVIDENCE OF ACUTE STROKE: NO. Brain MRI with MRA 04/13/19 15:58 IMPRESSION: NORMAL MRA OF THE [place]. Head MRI 04/13/19 15:58 IMPRESSION: NORMAL MRI OF THE BRAIN WITHOUT INTRAVENOUS GADOLINIUM CONTRAST. EVIDENCE OF ACUTE STROKE: NO. Assessment and Plan - Diagnosis (1) Acute labyrinthitis Qualifiers: Laterality: right Qualified Code(s): H83.01 - Labyrinthitis, right ear Is this a current diagnosis for this admission?: Yes Plan: Patient will receive supportive and symptomatic care. She will receive IV fluids and will be treated with a scopolamine transdermal patch, meclizine, diazepam and IV Solu-Medrol. She will be reevaluated on a regular basis for response to treatment. A daily CBC will be obtained as part of her ongoing evaluation. [id number]-old female admitted with acute labyrinthitis. Presently on IV fluids, scopolamine patch, meclizine, diazepam, IV Solu-Medrol. Plan is to discontinue IV fluids and diazepam from today. No acute events last 24 hours. Patient does think she is not stable enough to go home today. PT consult is going to be requested. (2) Dizziness Is this a current diagnosis for this admission?: Yes Plan: 04/14/2019-patient is still complaining of dizziness on standing may be secondary to labyrinthitis. Physical therapy is going to be requested. (3) Morbid obesity with BMI of 40.0-44.9, adult Is this a current diagnosis for this admission?: Yes Plan: A nutrition consultation will be obtained to advise the patient on a healthy diet and lifestyle changes, aimed at weight loss and improvement of her overall well-being. 04/14/2019-BMI is more than 42 diet exercise weight loss lifestyle modifications are discussed with the patient. - Time Time Spent with patient: 15-24 minutes Medications reviewed and adjusted accordingly: Yes Anticipated discharge: Home
[2019-04-15] MEDS: HEPARIN SOD (PORCINE) 5,000 UNIT/ML 1 ML VIAL SUBCUT SCH ×2 (05:32→13:37)
[2019-04-15] MEDS: MECLIZINE HCL 25 MG TABLET PO PRN (05:33)
[2019-04-15 06:39] LABS: ABSOLUTE BASOPHILS # (AUTO) 0.1 10^3/uL (0.0-0.2); ABSOLUTE LYMPHOCYTES (AUTO) 3.5 10^3/uL (0.5-4.7); ABSOLUTE MONOCYTES (AUTO) 0.9 10^3/uL (0.1-1.4); ABSOLUTE NEUT (AUTO) 9.2 10^3/uL (1.7-8.2); BASOPHILS % (AUTO) 0.5 % (0-2); EOSINOPHILS % (AUTO) 0.2 % (0-6); HEMOGLOBIN 11.6 g/dL (12.0-15.5); LYMPHOCYTES % (AUTO) 25.4 % (13-45); MEAN CORPUSCULAR HEMOGLOBIN 29.2 pg (27.0-33.4); MEAN CORPUSCULAR HGB CONC 33.1 g/dL (32.0-36.0); MEAN CORPUSCULAR VOLUME 88 fl (80-97); MONOCYTES % (AUTO) 6.8 % (3-13); PLATELET COUNT 343 10^3/uL (150-450); RED BLOOD COUNT 3.98 10^6/uL (3.72-5.28); RED CELL DISTRIBUTION WIDTH 15.6 % (11.5-14.0); SEGMENTED NEUTROPHILS % (AUTO) 67.1 % (42-78); TOTAL CELLS COUNTED % (AUTO) 100 %; WHITE BLOOD COUNT 13.8 10^3/uL (4.0-10.5)
[2019-04-15 06:57] LABS: ALBUMIN 3.2 g/dL (3.5-5.0); ALKALINE PHOSPHATASE 71 U/L (38-126); ANION GAP 6 (5-19); ASPARTATE AMINO TRANSFERASE 21 U/L (14-36); BILIRUBIN,DIRECT 0.2 mg/dL (0.0-0.4); BILIRUBIN,TOTAL 0.2 mg/dL (0.2-1.3); BLOOD UREA NITROGEN 18 mg/dL (7-20); CALCIUM 8.3 mg/dL (8.4-10.2); CARBON DIOXIDE 27 mmol/L (22-30); CHLORIDE 108 mmol/L (98-107); GLUCOSE 85 mg/dL (75-110); POTASSIUM 4.1 mmol/L (3.6-5.0); TOTAL PROTEIN 6.1 g/dL (6.3-8.2)
[2019-04-15] MEDS: FAMOTIDINE INJ/PF 20 MG/2 ML SDV IV SCH (09:33)
--- NOTE | 2019-04-15 10:49 | PDOC DISCHARGE SUMMARY ---
General - Admit/Disc Date/PCP Admission Date/Primary Care Provider: 04/13/19 19:29 Discharge Date: 04/15/19 - Discharge Diagnosis (1) Acute labyrinthitis Is this a current diagnosis for this admission?: Yes Summary: Patient will receive supportive and symptomatic care. She will receive IV fluids and will be treated with a scopolamine transdermal patch, meclizine, diazepam and IV Solu-Medrol. She will be reevaluated on a regular basis for response to treatment. A daily CBC will be obtained as part of her ongoing evaluation. 04/14/[id number]-rais-old female admitted with acute labyrinthitis. Presently on IV fluids, scopolamine patch, meclizine, diazepam, IV Solu-Medrol. Plan is to discontinue IV fluids and diazepam from today. No acute events last 24 hours. Patient does think she is not stable enough to go home today. PT consult is going to be requested. 04/15/[id number]-rien-old female admitted with acute labyrinthitis extensive work-up was done which came back negative. Patient is feeling much better today. She is going home on meclizine today. I strongly advised to follow her follow-up with Dr. dillon (2) Dizziness Is this a current diagnosis for this admission?: Yes Summary: 04/14/2019-patient is still complaining of dizziness on standing may be secondary to labyrinthitis. Physical therapy is going to be requested. 04/15/2019-patient is still complaining of dizziness much improved compared to the presentation to ER. Prescription was given for meclizine. She was strongly advised to follow-up with Dr. dillon (3) Morbid obesity with BMI of 40.0-44.9, adult Is this a current diagnosis for this admission?: Yes - Additional Information Resuscitation Status: Full Code Discharge Diet: Cardiac Discharge Activity: Activity As Tolerated Prescriptions: Meclizine HCl [Antivert 25 mg Tablet] 25 mg PO Q8HP PRN #90 tablet PRN Reason: Home Medications: Meclizine HCl [Antivert 25 mg Tablet] 25 mg PO Q8HP PRN #90 tablet 04/15/19 History of Present Illness History of Present Illness: JOSE GANT is a 43 year old female 43 year old female who presented to the emergency room with a 2 day history of dizziness. Patient complains of gradually worsening dizziness/vertigo which began Thursday shortly after landing at the airport upon her return from a vacati on in [place]. The dizziness and vertigo were present intermittently on Thursday and also on Thursday but at 4:30 this morning she was awakened by the dizziness, nausea and headache so severe that she was unable to stand and had to crawl to the bathroom in order to vomit. Her symptoms continued to worsen throughout the day causing her to present to the emergency room. She admits of an associated temporal-frontal headache, nausea with vomiting and heart palpitations. Her sensation of dizziness his become severe with a feeling that she is spinning and is worsened by movements of her head or eyes and relieved by putting her head in a downward gaze position with her eyes closed. She admits to similar prior episode of vertigo related to "seasickness" several years ago. She denies other associated or accompanying signs and symptoms. She has not identified any additional aggravating or ameliorating factors for her dizziness. In the emergency room she had an extensive work-up including an MRI of the head and numerous laboratory evaluations which were essentially unremarkable. Gina marques was somewhat responsive to initial treatment with Valium, scopolamine and meclizine but her symptoms reoccurred and she remained symptomatic and thus was admitted to the hospital for further evaluation and treatment. Hospital Course Hospital Course: 43 year old female who presented to the emergency room with a 2 day history of dizziness. Patient complains of gradually worsening dizziness/vertigo which began Thursday shortly after landing at the airport upon her return from a vacation in [place]. The dizziness and vertigo were present intermittently on Thursday and also on Thursday but at 4:30 this morning she was awakened by the dizziness, nausea and headache so severe that she was unable to stand and had to crawl to the bathroom in order to vomit. Her symptoms continued to worsen throughout the day causing her to present to the emergency room. She admits of an associated temporal-frontal headache, nausea with vomiting and heart palpitations. Her sensation of dizziness his become severe with a feeling that she is spinning and is worsened by movements of her head or eyes and relieved by putting her head in a downward gaze position with her eyes closed. She admits to similar prior episode of vertigo related to "seasickness" several years ago. She denies other associated or accompanying signs and symptoms. She has not identified any additional aggravating or ameliorating factors for her dizziness. In the emergency room she had an extensive work-up including an MRI of the head and numerous laboratory evaluations which were essentially unremarkable. Patient was somewhat responsive to initial treatment with Valium, scopolamine and meclizine but her symptoms reoccurred and she remained symptomatic and thus was admitted to the hospital for further evaluation and treatment. 04/14/[id number]-oppx-old female admitted with 2 days history of dizziness. Extensive work-up was done MRI of the head was negative CT head was negative MRI of the brain was negative she still complaining of dizziness on standing and feeling lightheaded she felt like she may able to fall every time she gets up. She does not want to go home. Physical Exam Vital Signs: Temp Pulse Resp BP Pulse Ox 98 F 66 18 117/61 95 04/15/19 07:46 04/15/19 07:46 04/15/19 07:46 04/15/19 07:46 04/15/19 07:46 Intake & Output 04/14/19 04/15/19 04/16/19 06:59 06:59 06:59 Intake Total 3030 1057 Output Total 0 0 Balance 3030 1057 Weight 114.7 kg 117.7 kg General appearance: PRESENT: no acute distress, cooperative, obese Head exam: PRESENT: atraumatic Eye exam: PRESENT: PERRLA Mouth exam: PRESENT: dry mucosa Neck exam: PRESENT: carotid bruit Respiratory exam: PRESENT: clear to auscultation aqulies. ABSENT: rales, rhonchi, wheezes Cardiovascular exam: PRESENT: RRR. ABSENT: diastolic murmur, rubs, systolic murmur GI/Abdominal exam: PRESENT: normal bowel sounds, soft. ABSENT: distended, guarding, mass, organolmegaly, rebound, tenderness Rectal exam: PRESENT: deferred Extremities exam: PRESENT: full ROM. ABSENT: calf tenderness, clubbing, pedal edema Neurological exam: PRESENT: alert, awake, oriented to person, oriented to place, oriented to time, oriented to situation, CN II-XII grossly intact. ABSENT: motor sensory deficit Psychiatric exam: PRESENT: appropriate affect, normal mood. ABSENT: homicidal ideation, suicidal ideation Results Laboratory Results: 04/15/19 05:57 04/15/19 05:57 04/15/19 04/15/19 05:57 05:57 WBC 13.8 H RBC 3.98 Hgb 11.6 L Hct 35.0 L MCV 88 MCH 29.2 MCHC 33.1 RDW 15.6 H Plt Count 343 Seg Neutrophils % 67.1 Lymphocytes % 25.4 Monocytes % 6.8 Eosinophils % 0.2 Basophils % 0.5 Absolute Neutrophils 9.2 H Absolute Lymphocytes 3.5 Absolute Monocytes 0.9 Absolute Eosinophils 0.0 Absolute Basophils 0.1 Sodium 141.1 Potassium 4.1 Chloride 108 H Carbon Dioxide 27 Anion Gap 6 BUN 18 Creatinine 0.78 Est GFR ( Amer) > 60 Est GFR (Non-Af Amer) > 60 Glucose 85 Calcium 8.3 L Magnesium 1.9 Total Bilirubin 0.2 AST 21 Alkaline Phosphatase 71 Total Protein 6.1 L Albumin 3.2 L 04/13/19 04/13/19 09:01 09:01 Creatine Kinase 75 CK-MB (CK-2) 0.66 Troponin I < 0.012 Impressions: Head CT 04/13/19 13:55 IMPRESSION: No acute intracranial pathology. No noncontrast CT findings to explain dizziness. EVIDENCE OF ACUTE STROKE: NO. Brain MRI with MRA 04/13/19 15:58 IMPRESSION: NORMAL MRA OF THE [place] OF [place]. Head MRI 04/13/19 15:58 IMPRESSION: NORMAL MRI OF THE BRAIN WITHOUT INTRAVENOUS GADOLINIUM CONTRAST. EVIDENCE OF ACUTE STROKE: NO. Qualifiers - * PATIENT BEING DISCHARGED WITH ANY OF THE FOLLOWING DIAGNOSIS: No Acute Heart Failure - Is this a Heart Failure Patient?: No
[2019-04-15 12:23] VITALS: BP 124/73
== END 2019-04-15 15:00 | disposition home or self-care (01) ==
LOC: ER 08:42 → EH 19:29 → INTOOBSV 19:29 → 5 22:19
PROVIDERS: ADMIT Emergency Medicine; ATTEND Emergency Medicine
DX: H83.01 Labyrinthitis, right ear (principal); R42 Dizziness and giddiness; E66.01 Morbid (severe) obesity due to excess calories; R00.2 Palpitations; R51 Headache; H55.09 Other forms of nystagmus; R06.02 Shortness of breath; R68.83 Chills (without fever); R26.2 Difficulty in walking, not elsewhere classified; Z82.49 Family history of ischemic heart disease and other diseases of the circulatory system; Z68.41 Body mass index [BMI] 40.0-44.9, adult; Z83.3 Family history of diabetes mellitus; Z86.72 Personal history of thrombophlebitis
CPT/HCPCS: 93005; 96376; 99285; 96361; 96374; 96375; 36415 ×3; 84439; 82553; 82550; 83735 ×3; 84443; 85025 ×2; 85027; 80048; 80053 ×2; 81001; 84484; 80307; 84481; 83036; 80061; 70551; 70544; 70450; 93010; 97116; 97163; G0378 ×4; J1644 ×3; J3360; J3490 ×2; J2930; J2270; J2300 ×2; J2405; J7030; J7120 ×2; S0028 ×3

== ENCOUNTER 2019-11-20 15:09 | Emergency (ER) | payer BC, OTHER ==
[2019-11-20] MEDS ORDERED: ONDANSETRON 4 MG TAB.RAPDIS PO ONE (15:37)
[2019-11-20] MEDS ORDERED: OXYCODONE-ACETAMINOPHEN 5-325 MG TABLET PO ONE (15:37)
--- NOTE | 2019-11-20 15:40 | ER Document Report ---
HPI - HPI Patient complains to provider of: RIGHT KNEE PAIN Time Seen by Provider: 11/20/19 15:35 Onset: This morning Onset/Duration: Sudden Severity: Severe Context: 44-year-old female presents with right knee pain. Reports couple weeks ago she hurt her knee but it was tolerable. She reports she did not follow-up with orthopedics. She reports today in shower she twisted her knee started having excruciating pain. Reports she did not fall. Reports history of meniscus tear on her left knee. Associated Symptoms: Nausea Exacerbated by: Movement Relieved by: Denies Similar symptoms previously: Yes Recently seen / treated by doctor: No - REPRODUCTIVE Reproductive: DENIES: : Past Medical History - General Information source: Patient Last Menstrual Period: LAST WEEK - Social History Smoking Status: Unknown if Ever Smoked Cigarette use (# per day): No Frequency of alcohol use: Social Drug Abuse: None Occupation: [employer] Lives with: Family Family History: CAD, DM, Hypertension, Malignancy Patient has suicidal ideation: No Patient has homicidal ideation: No - Past Medical History Cardiac Medical History: Denies: Hx Coronary Artery Disease, Hx Hypertension Pulmonary Medical History: Denies: Hx Asthma, Hx COPD Neurological Medical History: Reports: Hx Migraine. Denies: Hx Seizures Endocrine Medical History: Denies: Hx Diabetes Mellitus Type 1, Hx Diabetes Mellitus Type 2, Hx Hyperthyroidism, Hx Hypothyroidism Renal/ Medical History: Denies: Hx Peritoneal Dialysis GI Medical History: Denies: Hx Cirrhosis, Hx Crohn's Disease, Hx Hepatitis, Hx Ulcerative Colitis Musculoskeletal Medical History: Denies Hx Arthritis, Denies Hx Fibromyalgia, Denies Hx Gout Skin Medical History: Denies Hx Eczema, Denies Hx Psoriasis Infectious Medical History: Denies: Hx Hepatitis Surgical Hx: Negative Vertical Provider Document - CONSTITUTIONAL Agree With Documented VS: Yes Exam Limitations: No Limitations General Appearance: WD/WN, Mild Distress - Crying - INFECTION CONTROL TRAVEL OUTSIDE OF THE [place] IN LAST 30 DAYS: No - HEENT HEENT: Atraumatic, Normocephalic. negative: Conjuctival Injection - NECK Neck: Supple - RESPIRATORY Respiratory: Breath Sounds Normal, No Respiratory Distress - MUSCULOSKELETAL/EXTREMETIES Musculoskeletal/Extremeties: Tender - Right knee tender to palpate no obvious deformity no erythema no pain no warmth patient complains of severe pain with any movement. - NEURO Level of Consciousness: Awake, Alert, Appropriate Motor/Sensory: No Motor Deficit - DERM Integumentary: Warm, Dry Course - Re-evaluation Re-evalutation: 11/20/19 16:31 Knee X-Ray 11/20/19 15:37 IMPRESSION: NO FRACTURE. Small joint effusion. Patient with complaints of severe knee pain after she twisted in the shower this morning. X-ray negative for fracture shows small joint effusion. Patient instructed on this Elroy wrap and crutches. Patient instructed on importance of follow-up with an orthopedic for possible internal injury. - Diagnostic Test Radiology reviewed: Image reviewed, Reports reviewed Procedures - Immobilization Right Knee Pre-Proc Neuro Vasc Exam: Normal Immobilizer type: Elroy wrap Performed by: PCT Post-Proc Neuro Vasc Exam: Unchanged from pre-exam Alignment checked and good: Yes Discharge - Discharge Clinical Impression: Right knee pain Condition: Stable Disposition: HOME, SELF-CARE Instructions: Elroy Wrap ([facility]), Use of Crutches ([facility]), Ice & Elevation ([facility]), Suspected Internal Knee Injury ([facility]), Oral Narcotic Medication ([facility]) Additional Instructions: *You have been evaluated for right knee pain, suspected internal injury *Maintain the Elroy wrap and use your crutches for the next week. *Rest/Ice/Elevate your knee *Follow up with orthopedics this week *Take medication as prescribed *Return to ED for worsening condition, changes, needs Monitor your blood pressure. Your blood pressure was elevated today. This may be because you were anxious, in pain or because you need medication. It is important to follow up with your primary care provider for full evaluation. Prescriptions: Oxycodone HCl/Acetaminophen [Percocet 5-325 mg Tablet] 1 tab PO ASDIR PRN #15 tablet PRN Reason: Forms: Elevated Blood Pressure Referrals: RHEA ZALDIVAR JR, DO [ACTIVE PROVISIONAL STAFF] - Follow up tomorrow (CALL FOR AN APPOINTMENT)
--- NOTE | 2019-11-20 16:25 | RADIOLOGY REPORT (SQ) ---
EXAM DESCRIPTION: KNEE RIGHT 4 VIEWS COMPLETED DATE/TIME: 11/20/2019 4:05 pm REASON FOR STUDY: PAIN, RECENT TWISTING KNEE COMPARISON: None. EXAM PARAMETERS: NUMBER OF VIEWS: Three views. TECHNIQUE: AP, lateral and oblique radiographic images acquired of the right knee. LIMITATIONS: None. FINDINGS: MINERALIZATION: Normal. BONES: No acute fracture or dislocation. No worrisome bone lesions. JOINTS: Small effusion. SOFT TISSUES: No significant soft tissue swelling. No radiopaque foreign body. OTHER: No other significant finding. IMPRESSION: NO FRACTURE. Small joint effusion. TECHNICAL DOCUMENTATION: JOB ID: [id number] [place]-[id number] [employer]- All Rights Reserved Reading location - IP/workstation name: [email or web address]
[2019-11-20] MEDS ORDERED: ONDANSETRON ODT 4 MG TAB (6 TAB/ER DISP) PO PRN (16:36)
[2019-11-20 17:17] VITALS: BP 135/88
== END 2019-11-20 17:17 | disposition home or self-care (01) ==
LOC: ER 15:09
DX: M25.561 Pain in right knee (principal); R11.0 Nausea
CPT/HCPCS: 99283; 73564; S0119